=== PATIENT | male | born 1995 | race Caucasian/White ===

== ENCOUNTER 2024-09-15 14:10 | Emergency (ER) | payer OTHER ==
[2024-09-15] MEDS ORDERED: diazePAM 5 MG TABLET ONE (14:46)
[2024-09-15] MEDS: diazePAM 5 MG TABLET PO ONE (14:47)
[2024-09-15 15:17] VITALS: BP 147/89; PULSE 87; RESP 17; TEMP 97.8; BMI 26.5
[2024-09-15] MEDS ORDERED: ACETAMINOPHEN 325 MG TABLET (FP) ONE (15:47)
[2024-09-15] MEDS: ACETAMINOPHEN 325 MG TABLET (FP) PO ONE (16:24)
[2024-09-15] MEDS ORDERED: KETOROLAC TROMETHAMINE 30 MG/1 ML VIAL ONE (16:29)
[2024-09-15] MEDS: KETOROLAC TROMETHAMINE 30 MG/1 ML VIAL IM ONE (16:39)
== END 2024-09-15 18:17 | disposition home or self-care (01) ==
LOC: FER 14:10
PROC: 3E0233Z Introduction of Anti-inflammatory into Muscle, Percutaneous Approach (ICD-10-PCS; principal; 2024-09-15)
DX: M54.50 Low back pain, unspecified (principal)
CPT/HCPCS: 72100-TC-FY; 99284-25